=== PATIENT | male | born 1950 | race Caucasian/White ===

== ENCOUNTER → 2019-01-18 | Outpatient (CLI) | payer MEDICARE ==
--- NOTE | 2019-01-18 12:34 | PCVCIMAG ---
APPROVED REPORT Study performed: 01/18/2019 09:57:24 EXAM: Comprehensive 2D, Doppler, and color-flow Echocardiogram Patient Location: Echo lab Status: routine BSA: 2.09 HR: 81 bpmBP: 110/56 mmHg Rhythm: Pacemaker, PVCs Other Information Study Quality: Adequate Indications Congestive Heart Failure Atrial Fibrillation Pacemaker [facility] Marcell bioprosthetic aortic valve replacement 2D Dimensions IVSd: 12.89 (7-11mm)LVOT Diam: 22.58 (18-24mm) LVDd: 60.69 mm PWd: 10.99 (7-11mm)Ascending Ao: 44.27 (22-36mm) LVDs: 44.96 (25-40mm) Left Atrium: 46.83 (27-40mm) Aortic Root: 41.41 mm LV Single Plane 4CH: 31.57 % LV Single Plane 2CH: 45.21 % Volumes Left Atrial Volume (Systole) Single Plane 4CH: 95.36 mLSingle Plane 2CH: 152.63 mL LA ESV Index: 58.00 mL/m2 Aortic Valve AoV Peak Pawan.: 2.60 m/s AO Peak Gr.: 27.22 mmHgLVOT Max P.50 mmHg AO Mean Gr.: 13.08 mmHgLVOT Mean P.69 mmHg AO V2 Mean: 1.64 m/sLVOT Max V: 1.17 m/s AO V2 VTI: 54.35 cmLVOT Mean V: 0.76 m/s [place] (VTI): 1.86 [id number] V1 VTI: 25.30 cm [place] Vmax: 1.80 cm2 SV (LVOT): 101.25 mL Mitral Valve IVRT: 103.81 ms Pulmonary Valve PV Peak Pawan.: 0.79 m/sPV Peak Gr.: 2.59 mmHg Tricuspid Valve TR Peak Pawan.: 3.61 m/s TR Peak Gr.: 52.70 mmHg Left Ventricle Left ventricle is mildly dilated. There is normal LV segmental wall motion. Borderline concentric left ventricular hypertrophy. Left ventricular systolic function is mild to moderately decreased. LVEF is 40%. This study is not technically sufficient to allow evaluation of the LV diastolic function due to atrial fibrillation, PVCs. Right Ventricle The right ventricle is normal size. The right ventricular systolic function is normal. Pacemaker lead is present in the right ventricle. Atria Left atrium is severely dilated. Right atrium is moderately dilated. Pacemaker lead is present in the right atrium. Aortic Valve [facility] Marcell bioprosthetic valve in the aortic position. Moderate aortic regurgitation. There is trace valvular aortic stenosis. Calculated aortic valve area is 1.8 cm2 with maximum pressure gradient of 27 mmHg and mean pressure gradient of 13 mmHg. Mitral Valve The mitral valve is normal in structure. Moderate mitral regurgitation. No evidence of mitral valve stenosis. Tricuspid Valve The tricuspid valve is normal in structure. Moderate tricuspid regurgitation with PAP of 63 mmHg. Pulmonic Valve The pulmonary valve is normal in structure. Mild to moderate pulmonic regurgitation. 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 IVC is dilated and collapses >50% with inspiration. Pericardium There is no pericardial effusion. There is no pleural effusion. <Conclusion> Left ventricle is mildly dilated. Borderline concentric left ventricular hypertrophy. LVEF is 40%. This study is not technically sufficient to allow evaluation of the LV diastolic function due to atrial fibrillation, PVCs. The right ventricle is normal size. Left atrium is severely dilated. Pacemaker lead is present in the right ventricle. Right atrium is moderately dilated. Pacemaker lead is present in the right atrium. [facility] Marcell bioprosthetic valve in the aortic position. Moderate aortic regurgitation. There is trace valvular aortic stenosis. Calculated aortic valve area is 1.8 cm2 with maximum pressure gradient of 27 mmHg and mean pressure gradient of 13 mmHg. Moderate mitral regurgitation. Moderate tricuspid regurgitation with PAP of 63 mmHg. 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 Ascending aorta is dilated to 4.4 cm. There is no pericardial effusion.
== END | disposition home or self-care (01) ==
LOC: PCVCIMAG 09:59
PROVIDERS: ATTEND Internal Medicine Cardiovascular Disease
DX: I11.0 Hypertensive heart disease with heart failure (principal); I50.23 Acute on chronic systolic (congestive) heart failure; I48.0 Paroxysmal atrial fibrillation; A69.20 Lyme disease, unspecified; I35.0 Nonrheumatic aortic (valve) stenosis; I42.9 Cardiomyopathy, unspecified; I49.5 Sick sinus syndrome; I49.3 Ventricular premature depolarization; Z95.0 Presence of cardiac pacemaker; Z95.2 Presence of prosthetic heart valve
CPT/HCPCS: 36415; 80061; 93005; 93306; G0463